=== PATIENT | female | born 1990 ===

== ENCOUNTER 2018-08-15 16:55 | Observation (INO) | payer OTHER ==
[2018-08-15 16:55] VITALS: BMI 29.2
--- NOTE | 2018-08-15 17:28 | ED PDOC ---
Syncope/Near Syncope/Dizziness Time Seen by Provider: 08/15/18 17:08 Chief Complaint (Nursing): Syncope History Per: Patient, Other Onset/Duration Of Symptoms: Hrs (1) Current Symptoms Are (Timing): Better Activity At Onset Of Symptoms: Standing Fall Associated With With Symptoms: No Severity: Moderate Additional Complaint(s): Brought by EMS after pt was noted to have syncopal episode with possible seizure activity witnessed by friend. Shaking upper exts. Entire syncopal episode lasted approx 10 min. Pt does not recollect event. No fall or injury. No biting of tongue. Past Medical History Vital Signs: Last Vital Signs Temp 98.9 F 08/15/18 16:59 Pulse 80 08/15/18 16:59 Resp 16 08/15/18 16:59 BP 148/101 H 08/15/18 16:59 Pulse Ox 99 08/15/18 16:59 - Medical History PMH: Anemia - Family History Family History: States: Unknown Family Hx - Allergies Allergies/Adverse Reactions: Allergies Allergy/AdvReac Type Severity Reaction Status Date / Time No Known Allergies Allergy Verified 02/22/13 23:53 Review of Systems ROS Statement: Except As Marked, All Systems Reviewed And Found Negative Neurological: Positive for: Headache, Other (Syncope) Physical Exam - Reviewed Nursing Documentation Reviewed: Yes Vital Signs Reviewed: Yes - Physical Exam Appears: Positive for: Non-toxic, No Acute Distress Head Exam: Positive for: ATRAUMATIC, NORMAL INSPECTION, NORMOCEPHALIC Skin: Positive for: Normal Color, Warm, DRY Eye Exam: Positive for: EOMI, Normal appearance, PERRL ENT: Positive for: Normal ENT Inspection Neck: Positive for: Normal, Painless ROM Cardiovascular/Chest: Positive for: Regular Rate, Rhythm Respiratory: Positive for: CNT, Normal Breath Sounds Gastrointestinal/Abdominal: Positive for: Normal Exam, Soft Back: Positive for: Normal Inspection Extremity: Positive for: Normal ROM Neurologic/Psych: Positive for: Alert, Oriented - ECG O2 Sat by Pulse Oximetry: 99 Disposition - Clinical Impression Clinical Impression: Syncope - Patient ED Disposition Is Patient to be Admitted: Yes - Disposition Disposition Time: 18:17 Condition: FAIR Forms: [facility] (Tristanian) - Pt Status Changed To: Hospital Disposition Of: Observation - POA Present On Arrival: None
--- NOTE | 2018-08-15 18:29 | CT ---
Date of service: 08/15/2018 PROCEDURE: CT HEAD WITHOUT CONTRAST. HISTORY: r/o bleed COMPARISON: None. TECHNIQUE: Axial computed tomography images were obtained through the head/brain without intravenous contrast. Supplemental Coronal and Sagittal projections created and reviewed. Radiation dose: Total exam DLP = 692.52 mGy-cm. This CT exam was performed using one or more of the following dose reduction techniques: Automated exposure control, adjustment of the mA and/or kV according to patient size, and/or use of iterative reconstruction technique. FINDINGS: HEMORRHAGE: No intracranial hemorrhage. BRAIN: No mass effect or edema. No atrophy or chronic microvascular ischemic changes. VENTRICLES: Unremarkable. No hydrocephalus. CALVARIUM: Unremarkable. PARANASAL SINUSES: Unremarkable as visualized. No significant inflammatory changes. MASTOID AIR CELLS: Unremarkable as visualized. No inflammatory changes. OTHER FINDINGS: None. IMPRESSION: No acute intracranial abnormalities. No significant findings to account for the clinical presentation.
--- NOTE | 2018-08-15 18:56 | CP.PCM.HP ---
<Chico Vences - Last Filed: 08/15/18 22:20> History of Present Illness - History of Present Illness History of Present Illness: Pt is a 28 y/o female with hx of Gestational HTN brought in by ambulance after seizure-like episode/syncopy. Pt states she was at work today and she started to feel cold and shaky. She called her cousin who came to her job and witnessed her lose consciousness suddenly and "started shaking all over like a seizure." Episode lasted ~10minutes during which time she was unresponsive. When she woke up, cousin states she was slightly confused, lethargic and had no recollection of preceding events. As per cousin, she denied seeing any head trauma, tongue biting, or loss of bladder control during episode. Pt denies any hx of seizures, recent illness, cp, sob, cough, fever/chills, new medications, motor/sensory deficits, blurry vision, or drug intake. Pt states she had headache a few days before which was at its usually severity. PMD: none PMHX: Gestational HTN, Tension headaches PSHx: 3 c sections Medications: None NKDA FmHx: Denies Social x3 negative, works in [employer] Present on Admission - Present on Admission Any Indicators Present on Admission: No Review of Systems - Constitutional Constitutional: absent: Chills, Fever - EENT Eyes: absent: Blurred Vision Nose/Mouth/Throat: absent: Epistaxis - Cardiovascular Cardiovascular: absent: Chest Pain - Respiratory Respiratory: absent: Cough - Gastrointestinal Gastrointestinal: absent: Abdominal Pain - Genitourinary Genitourinary: absent: Dysuria Past Patient History - Past Social History Smoking Status: Never Smoked - NEUROLOGICAL Hx Syncope: Yes - HEMATOLOGICAL/ONCOLOGICAL Hx Anemia: Yes - PSYCHIATRIC Hx Substance Use: No Meds Allergies/Adverse Reactions: Allergies Allergy/AdvReac Type Severity Reaction Status Date / Time No Known Allergies Allergy Verified 02/22/13 23:53 Physical Exam - Constitutional Appears: No Acute Distress (Comfortable appearing female lying in bed) - Head Exam Head Exam: ATRAUMATIC, NORMAL INSPECTION - Eye Exam Eye Exam: EOMI, Normal appearance, PERRL. absent: Nystagmus - ENT Exam ENT Exam: Mucous Membranes Moist - Neck Exam Neck exam: Positive for: Full Rom - Respiratory Exam Respiratory Exam: Clear to Auscultation Bilateral. absent: Rales, Wheezes - Cardiovascular Exam Cardiovascular Exam: REGULAR RHYTHM, +S1, +S2. absent: Systolic Murmur - GI/Abdominal Exam GI & Abdominal Exam: Normal Bowel Sounds, Soft. absent: Tenderness - Extremities Exam Extremities exam: Positive for: normal inspection - Neurological Exam Neurological exam: Alert, Oriented x3 Additional comments: CN 2-12 intact, no motor or sensory deficit, no facial droop or slurred speech - Psychiatric Exam Psychiatric exam: Normal Affect - Skin Skin Exam: Normal Color Results - Vital Signs Recent Vital Signs: Last Vital Signs Temp 98.9 F 08/15/18 16:59 Pulse 80 08/15/18 16:59 Resp 16 08/15/18 16:59 BP 148/101 H 08/15/18 16:59 Pulse Ox 99 08/15/18 18:18 - Labs Result Diagrams: 08/15/18 19:13 08/15/18 19:11 Assessment & Plan - Assessment and Plan (Free Text) Assessment: Pt is a 28 y/o female with hx of Gestational HTN brought in by ambulance after seizure like episode/syncopy. #Syncopy -Possibly seizure, will evaluate for other potential causes. - Hemodynamically stable, afebrile - CBC, CMP normal - Utox negative, ETOH negative - Head CT: No acute intracranial abnormalities - EKG: NSR - Cardiac Monitoring in Telemetry unit - Neurology consult, Dr. Lai - F/U Echo, Carotid Artery US BL - F/u AM Prolactin #Diet -regular #DVT -Low risk - SCD's for now -Ambulation encouraged Discussed case with Dr. Jose Vences PGY2 <Darcie Garcia - Last Filed: 08/16/18 19:00> Results - Vital Signs Recent Vital Signs: Last Vital Signs Temp 98.8 F 08/16/18 17:06 Pulse 72 08/16/18 17:06 Resp 16 08/16/18 17:06 BP 126/86 08/16/18 17:06 Pulse Ox 97 08/16/18 17:06 - Labs Result Diagrams: 08/15/18 19:13 08/15/18 19:11 Labs: Laboratory Results - last 24 hr 08/15/18 08/15/18 08/15/18 19:11 19:11 19:13 WBC 8.3 RBC 4.92 Hgb 14.1 Hct 42.5 MCV 86.5 MCH 28.6 MCHC 33.1 RDW 14.3 Plt Count 246 MPV 9.2 Neut % (Auto) 65.4 Lymph % (Auto) 27.5 [place] % (Auto) 5.3 Eos % (Auto) 1.1 Baso % (Auto) 0.7 Neut # (Auto) 5.4 Lymph # (Auto) 2.3 [place] # (Auto) 0.4 Eos # (Auto) 0.1 Baso # (Auto) 0.1 Sodium 140 Potassium 4.1 Chloride 105 Carbon Dioxide 24 Anion Gap 15 BUN 11 Creatinine 0.5 L Est GFR ( Amer) > 60 Est GFR (Non-Af Amer) > 60 Random Glucose 86 Calcium 9.6 Magnesium Total Bilirubin 0.5 AST 30 ALT 30 Alkaline Phosphatase 85 Total Creatine Kinase 121 Total Protein 8.6 H Albumin 4.7 Globulin 3.9 Albumin/Globulin Ratio 1.2 Triglycerides Cholesterol LDL Cholesterol Direct HDL Cholesterol Prolactin Urine Opiates Screen Negative Urine Methadone Screen Negative Ur Barbiturates Screen Negative Ur Phencyclidine Scrn Negative Ur Amphetamines Screen Negative U Benzodiazepines Scrn Negative U Oth Cocaine Metabols Negative U Cannabinoids Screen Negative Alcohol, Quantitative < 10 08/15/18 08/16/18 20:25 04:25 WBC RBC Hgb Hct MCV MCH MCHC RDW Plt Count MPV Neut % (Auto) Lymph % (Auto) [place] % (Auto) Eos % (Auto) Baso % (Auto) Neut # (Auto) Lymph # (Auto) [place] # (Auto) Eos # (Auto) Baso # (Auto) Sodium Potassium Chloride Carbon Dioxide Anion Gap BUN Creatinine Est GFR ( Amer) Est GFR (Non-Af Amer) Random Glucose Calcium 9.7 Magnesium 2.1 Total Bilirubin AST ALT Alkaline Phosphatase Total Creatine Kinase Total Protein Albumin Globulin Albumin/Globulin Ratio Triglycerides 80 Cholesterol 201 H LDL Cholesterol Direct 135 H HDL Cholesterol 43 Prolactin 46.1 H Urine Opiates Screen Urine Methadone Screen Ur Barbiturates Screen Ur Phencyclidine Scrn Ur Amphetamines Screen U Benzodiazepines Scrn U Oth Cocaine Metabols U Cannabinoids Screen Alcohol, Quantitative Attending/Attestation - Attestation I have personally seen and examined this patient.: Yes I have fully participated in the care of the patient.: Yes I have reviewed all pertinent clinical information: Yes Notes (Text): 08/16/18 19:00 agree with findings and plan as above
[2018-08-15 19:19] LABS: BASO # 0.1 K/uL (0.0-0.2); BASO % 0.7 % (0.0-2.0); EOS # 0.1 K/uL (0.0-0.7); EOS % 1.1 % (0.0-4.0); HEMOGLOBIN 14.1 g/dL (12.0-16.0); LYMPH # 2.3 K/uL (1.0-4.3); LYMPH % 27.5 % (20.0-40.0); MEAN CELL VOLUME 86.5 fl (81.0-99.0); MEAN CORPUSCULAR HEMOGLOBIN 28.6 pg (27.0-31.0); MEAN CORPUSCULAR HGB CONC 33.1 g/dL (33.0-37.0); MEAN PLATELET VOLUME 9.2 fl (7.2-11.7); MONO # 0.4 K/uL (0.0-0.8); MONO % 5.3 % (0.0-10.0); NEUT # 5.4 K/uL (1.8-7.0); NEUT % 65.4 % (50.0-75.0); NRBC % 0.1 % (0.0-0.0); RBC 4.92 Mil/uL (3.80-5.20); RED CELL DISTRIBUTION WIDTH 14.3 % (11.5-14.5); WHITE BLOOD COUNT 8.3 K/uL (4.8-10.8)
[2018-08-15 19:32] LABS: ALB/GLOB RATIO 1.2 (1.0-2.1); ALBUMIN 4.7 g/dL (3.5-5.0); ALT/SGPT 30 U/L (9-52); AST/SGOT 30 U/L (14-36); BLOOD UREA NITROGEN 11 mg/dl (7-17); CALCIUM 9.6 mg/dL (8.4-10.2); GFR NON-AFRICAN AMERICAN > 60
[2018-08-15 19:41] LABS: BARBITURATES, UR NEGATIVE (NEGATIVE); BENZODIAZEPINES, UR NEGATIVE (NEGATIVE); OPIATES, UR NEGATIVE (NEGATIVE); PHENCYCLIDINE, UR NEGATIVE (NEGATIVE)
[2018-08-16 04:56] VITALS: O2SAT 97
[2018-08-16] MEDS ORDERED: Influenza Vaccine (5 YR UP)/PF 60 MCG/0.5 ML SYR IM ONE (06:00)
[2018-08-16] MEDS ORDERED: Influenza Vaccine 60 mcg/0.5 mL SYR (4YR UP) IM ONE (06:00)
[2018-08-16 06:08] LABS: CALCIUM 9.7 mg/dL (8.4-10.2)
--- NOTE | 2018-08-16 09:40 | CP.PCM.PN ---
Subjective - Date & Time of Evaluation Date of Evaluation: 08/16/18 Time of Evaluation: 07:45 - Subjective Subjective: Pt seen and examined at bedside this am. Denies acute overnight events. Denies history of cardiac or neuro pathology. Denies focal neurological deficit. Tolerating PO diet and experiencing normal bowel movement. Objective - Vital Signs/Intake and Output Vital Signs (last 24 hours): Temp Pulse Resp BP Pulse Ox 98.6 F 84 18 118/77 97 08/16/18 08:07 08/16/18 08:07 08/16/18 08:07 08/16/18 08:07 08/16/18 08:07 - Medications Medications: Current Medications Acetaminophen (Tylenol 325mg Tab) 650 mg PO Q6 PRN PRN Reason: Pain, Mild (1-3) - Labs Labs: 08/15/18 19:13 08/15/18 19:11 - Constitutional Appears: Well, No Acute Distress - Eye Exam Eye Exam: EOMI - ENT Exam ENT Exam: Mucous Membranes Moist - Neck Exam Neck Exam: Full ROM - Respiratory Exam Respiratory Exam: Clear to Ausculation Bilateral, NORMAL BREATHING PATTERN. absent: Wheezes - Cardiovascular Exam Cardiovascular Exam: REGULAR RHYTHM, +S1, +S2 - GI/Abdominal Exam GI & Abdominal Exam: Soft, Normal Bowel Sounds. absent: Tenderness - Extremities Exam Extremities Exam: Full ROM - Back Exam Back Exam: absent: CVA tenderness (L), CVA tenderness (R) - Neurological Exam Neurological Exam: Alert, Awake, CN II-XII Intact, Oriented x3 - Psychiatric Exam Psychiatric exam: Normal Affect, Normal Mood Assessment and Plan - Assessment and Plan (Free Text) Assessment: Pt is a 28 y/o female with hx of Gestational HTN presents for possible seizure like episode/syncope. Plan: Head CT: No acute intracranial abnormalities EKG: NSR Carotid Artery US: No evidence of hemodynamically significant stenosis in the extracranial internal carotic arteries by peak systolic velocity criteria. Patent bilateral vertebral arteries with antegrade flow ECHO: EF 60-65%; borderline concentric LVH; mild TR EEG: done Syncopy - Possibly seizure - Utox negative, ETOH negative - Cardiac Monitoring in Telemetry unit - Neurology Dr. Lai: Further recs appreciated. - Lipid: T; Cholesterol: 201; LDL: 135; HDL: 43 - Prolactin: 46.[address] Jose Nolan MD PGY2
--- NOTE | 2018-08-16 10:54 | CARD ---
APPROVED REPORT Date of service: 08/15/2018 EKG Measurement Heart [id number] <Conclusion> Normal sinus rhythm Normal Electrocardiogram
--- NOTE | 2018-08-16 11:01 | CARD ---
APPROVED REPORT Date of service: 08/16/2018 EXAM: Two-dimensional and M-mode echocardiogram with Doppler and color Doppler. Other Information Quality : GoodRhythm : NSR INDICATION Syncope 2D DIMENSIONS IVSd1.24 (0.7-1.1cm)LVDd3.91 (3.9-5.9cm) LVOT Diameter1.86 (1.8-2.4cm)PWd1.15 (0.7-1.1cm) IVSs1.35 (0.8-1.2cm)LVDs2.61 (2.5-4.0cm) FS (%) 33.2 %PWs1.61 (0.8-1.2cm) M-Mode DIMENSIONS Left Atrium (MM)3.08 (2.5-4.0cm)IVSd1.19 (0.7-1.1cm) Aortic Root2.60 (2.2-3.7cm)LVDd3.35 (4.0-5.6cm) Aortic Cusp Exc.1.67 (1.5-2.0cm)PWd1.43 (0.7-1.1cm) IVSs1.46 cmFS (%) 43 % LVDs1.91 (2.0-3.8cm)PWs1.77 cm Aortic Valve AoV Peak Nopzpcmr369.4cm/sAoV VTI23.1cmAO Peak GR.6mmHg LVOT Peak Wivnakte827.1cm/sLVOT VTI19.48cmAO Mean GR.3mmHg CHRISTAL (VMAX)1.97rf3VMN (VTI)1.40cm2 Mitral Valve MV E Pgctdxfu66.6cm/sMV DECEL [id number] A Nqophcen92.5cm/s MV FQY81sfV/A ratio1.6MVA (PHT)3.49cm2 TDI Lateral E' Peak V9.94cm/sMedial E' Peak V7.90cm/sE/Lateral E'7.5 E/Medial E'9.4 Tricuspid Valve TR Peak Zefrpozr382cy/sRAP [id number] Peak Gr.26mmHg [id number] LEFT VENTRICLE The left ventricle is normal size. There is borderline concentric left ventricular hypertrophy. The left ventricular systolic function is normal. The estimated ejection fraction is 60-65% No regional wall motion abnormalities noted.. The left ventricular diastolic function is normal. No left ventricle thrombus noted on this study. There is no ventricular septal defect visualized. There is no left ventricular aneurysm. There is no mass noted in the left ventricle. RIGHT VENTRICLE The right ventricle is normal size. There is normal right ventricular wall thickness. The right ventricular systolic function is normal. ATRIA The left atrium size is normal. The right atrium size is normal. The interatrial septum is intact with no evidence for an atrial septal defect. AORTIC VALVE The aortic valve is normal in structure. No aortic regurgitation is present. There is no aortic valvular stenosis. There is no aortic valvular vegetation. MITRAL VALVE The mitral valve is normal in structure. There is no evidence of mitral valve prolapse. There is no mitral valve stenosis. There is no mitral valve regurgitation noted. TRICUSPID VALVE The tricuspid valve is normal in structure. There is mild tricuspid valve regurgitation noted. RVSP is calculated at 33 mm Hg. There is no tricuspid valve prolapse or vegetation. There is no tricuspid valve stenosis. PULMONIC VALVE The pulmonary valve is normal in structure. There is no pulmonic valvular regurgitation. There is no pulmonic valvular stenosis. GREAT VESSELS The aortic root is normal in size. The ascending aorta is normal in size. The pulmonary artery is normal. The IVC is normal in size and collapses >50% with inspiration. PERICARDIAL EFFUSION There is no pericardial effusion. There is no pleural effusion. <Conclusion> There is borderline concentric left ventricular hypertrophy. The estimated ejection fraction is 60-65% The left ventricular diastolic function is normal. The right ventricular systolic function is normal. The left atrium size is normal. There is mild tricuspid valve regurgitation noted. RVSP is calculated at 33 mm Hg. The IVC is normal in size and collapses >50% with inspiration.
--- NOTE | 2018-08-16 11:29 | US ---
Date of service: 08/15/2018 PROCEDURE: Duplex ultrasound of the carotid and vertebral arteries. HISTORY: Syncope COMPARISON: None available. TECHNIQUE: Grayscale and duplex Doppler evaluation of the cervical carotid and vertebral arteries were performed. The common carotid, carotid bifurcations and cervical ICA and proximal ECA were evaluated. The vertebral arteries were evaluated for gross patency and direction. FINDINGS: RIGHT CAROTID ARTERIES: Common Carotid Artery: Normal. Maximal flow velocity of 108.1 cm/s. Carotid Bifurcation: Normal. Internal Carotid Artery:Normal. Maximal flow velocity of 76.3 cm/s. External Carotid Artery (proximal branches): Normal. Maximal flow velocity of 85.1 cm/s. ICA/CCA Ratio: 1.1 LEFT CAROTID ARTERIES: Common Carotid Artery: Normal. Maximal flow velocity of 99.9 cm/s. Carotid Bifurcation: Normal. Internal Carotid Artery:Normal. Maximal flow velocity of 69.8 cm/s. External Carotid Artery (proximal branches): Normal. Maximal flow velocity of 57.6 cm/s. ICA/CCA Ratio: 0.9 VERTEBRAL ARTERIES: Right Vertebral Artery: Patent. Antegrade flow. Left Vertebral Artery: Patent. Antegrade flow. OTHER FINDINGS: No atherosclerotic calcification present IMPRESSION: No evidence of hemodynamically significant stenosis in the extracranial internal carotid arteries by peak systolic velocity criteria. Patent bilateral vertebral arteries with antegrade flow.
--- NOTE | 2018-08-16 12:54 | PCM.EEG ---
Electroencephalogram Report - Electroencephalogram Report Procedure Date: 08/16/18 Medication: Tylenol Interpretation: Technical Information: This was a 16 -channel EEG, 1-channel EKG routine EEG performed using an [employer] machine. Electrodes were applied using the 10/20 international placement system. Start; 10;10 End; 11;01 Clinical Information: syncope During resting wakefulness there was a symmetric posterior dominant rhythm at 8.5-9.5 Hz, 30-50 uV, which was reactive to eye opening and closing. Drowsiness (10;28) was associated with fragmentation of the posterior dominant rhythm and with slow roving eye movements. Light sleep (10;48) was recorded and was characterized by central vertex waves, sleep spindles, and bilateral theta slowing. Hyperventilation was performed and there were no changes on the record. . Photic stimulation was performed and there were no changes on the record. Focal abnormality; none ECG was associated with a normal sinus rhythm. Impression: This is a normal awake drowsy and sleep electroencephalogram.
--- NOTE | 2018-08-16 14:46 | CP.PCM.DIS ---
<Thomas Nolan - Last Filed: 08/16/18 14:44> Provider - Provider Date of Admission: 08/15/18 18:16 Attending physician: Darcie Garcia DO Consults: 08/15/18 18:56 Neurology Consult Routine Comment: Consulting Provider: Abdifatah Lai Consulting Physician: Abdifatah Lia Reason for Consult: rule out seizure Time Spent in preparation of Discharge (in minutes): 30 Hospital Course - Lab Results Lab Results: Most Recent Lab Values WBC 8.3 K/uL (4.8-10.8) 08/15/18 19:13 RBC 4.92 Mil/uL (3.80-5.20) 08/15/18 19:13 Hgb 14.1 g/dL (12.0-16.0) 08/15/18 19:13 Hct 42.5 % (34.0-47.0) 08/15/18 19:13 MCV 86.5 fl (81.0-99.0) 08/15/18 19:13 MCH 28.6 pg (27.0-31.0) 08/15/18 19:13 MCHC 33.1 g/dL (33.0-37.0) 08/15/18 19:13 RDW 14.3 % (11.5-14.5) 08/15/18 19:13 Plt Count 246 K/uL (130-400) 08/15/18 19:13 MPV 9.2 fl (7.2-11.7) 08/15/18 19:13 Neut % (Auto) 65.4 % (50.0-75.0) 08/15/18 19:13 Lymph % (Auto) 27.5 % (20.0-40.0) 08/15/18 19:13 [place] % (Auto) 5.3 % (0.0-10.0) 08/15/18 19:13 Eos % (Auto) 1.1 % (0.0-4.0) 08/15/18 19:13 Baso % (Auto) 0.7 % (0.0-2.0) 08/15/18 19:13 Neut # (Auto) 5.4 K/uL (1.8-7.0) 08/15/18 19:13 Lymph # (Auto) 2.3 K/uL (1.0-4.3) 08/15/18 19:13 [place] # (Auto) 0.4 K/uL (0.0-0.8) 08/15/18 19:13 Eos # (Auto) 0.1 K/uL (0.0-0.7) 08/15/18 19:13 Baso # (Auto) 0.1 K/uL (0.0-0.2) 08/15/18 19:13 Sodium 140 mmol/l (132-148) 08/15/18 19:11 Potassium 4.1 MMOL/L (3.6-5.0) 08/15/18 19:11 Chloride 105 mmol/L (98-107) 08/15/18 19:11 Carbon Dioxide 24 mmol/L (22-30) 08/15/18 19:11 Anion Gap 15 (10-20) 08/15/18 19:11 BUN 11 mg/dl (7-17) 08/15/18 19:11 Creatinine 0.5 mg/dl (0.7-1.2) L 08/15/18 19:11 Est GFR ( Amer) > 60 08/15/18 19:11 Est GFR (Non-Af Amer) > 60 08/15/18 19:11 Random Glucose 86 mg/dL (65-105) 08/15/18 19:11 Calcium 9.7 mg/dL (8.4-10.2) 08/16/18 04:25 Magnesium 2.1 MG/DL (1.6-2.3) 08/16/18 04:25 Total Bilirubin 0.5 mg/dl (0.2-1.3) 08/15/18 19:11 AST 30 U/L (14-36) 08/15/18 19:11 ALT 30 U/L (9-52) 08/15/18 19:11 Alkaline Phosphatase 85 U/L (38-126) 08/15/18 19:11 Total Creatine Kinase 121 U/L (30-135) 08/15/18 19:11 Total Protein 8.6 G/DL (6.3-8.2) H 08/15/18 19:11 Albumin 4.7 g/dL (3.5-5.0) 08/15/18 19:11 Globulin 3.9 gm/dL (2.2-3.9) 08/15/18 19:11 Albumin/Globulin Ratio 1.2 (1.0-2.1) 08/15/18 19:11 Triglycerides 80 mg/DL (0-149) 08/16/18 04:25 Cholesterol 201 mg/dL (0-199) H 08/16/18 04:25 LDL Cholesterol Direct 135 mg/dL (0-129) H 08/16/18 04:25 HDL Cholesterol 43 MG/DL (30-70) 08/16/18 04:25 Prolactin 46.1 ng/mL (3.0-18.9) H 08/15/18 20:25 Urine Opiates Screen Negative (NEGATIVE) 08/15/18 19:11 Urine Methadone Screen Negative (NEGATIVE) 08/15/18 19:11 Ur Barbiturates Screen Negative (NEGATIVE) 08/15/18 19:11 Ur Phencyclidine Scrn Negative (NEGATIVE) 08/15/18 19:11 Ur Amphetamines Screen Negative (NEGATIVE) 08/15/18 19:11 U Benzodiazepines Scrn Negative (NEGATIVE) 08/15/18 19:11 U Oth Cocaine Metabols Negative (NEGATIVE) 08/15/18 19:11 U Cannabinoids Screen Negative (NEGATIVE) 08/15/18 19:11 Alcohol, Quantitative < 10 mg/dl (0-10) 08/15/18 19:11 - Hospital Course Hospital Course: 28 y/o female with hx of Gestational HTN presents for possible seizure like episode/syncope. Head CT: No acute intracranial abnormalities EKG: NSR Carotid Artery US: No evidence of hemodynamically significant stenosis in the extracranial internal carotid arteries by peak systolic velocity criteria. Patent bilateral vertebral arteries with antegrade flow ECHO: EF 60-65%; borderline concentric LVH; mild TR EEG: Normal awake drowsy and sleep electroencephalogram. Syncopy - Possibly seizure - Utox negative, ETOH negative - Cardiac Monitoring in Telemetry unit - Neurology Dr. Park - Lipid: T; Cholesterol: 201; LDL: 135; HDL: 43 - Prolactin: 46.1. Pt discharge come to f/u with pmd in 3-5 days. ER precautions reviewed with patient. Discussed case with Dr. Jose Nolan MD PGY2 Discharge Exam - Head Exam Head Exam: ATRAUMATIC, NORMAL INSPECTION - Eye Exam Eye Exam: EOMI - ENT Exam ENT Exam: Mucous Membranes Dry - Respiratory Exam Respiratory Exam: Clear to PA & Lateral, NORMAL BREATHING PATTERN. absent: Wheezes - Cardiovascular Exam Cardiovascular Exam: REGULAR RHYTHM, +S1, +S2 - GI/Abdominal Exam GI & Abdominal Exam: Normal Bowel Sounds, Soft. absent: Tenderness - Back Exam Back exam: absent: CVA tenderness (L), CVA tenderness (R) - Neurological Exam Neurological exam: Alert, CN II-XII Intact, Oriented x3 - Psychiatric Exam Psychiatric exam: Normal Affect, Normal Mood Discharge Plan - Follow Up Plan Condition: FAIR Disposition: HOME/ ROUTINE Instructions: Syncope (DC) Additional Instructions: Pt to f/u with PMD in 3-5 days ER precautions reviewed with patient Neurology: Dr. Park. Referrals: [facility] [Outside] Esvin Park MD [Medical Doctor] - <Darcie Garcia - Last Filed: 08/16/18 18:57> Provider - Provider Date of Admission: 08/15/18 18:16 Attending physician: Darcie Garcia DO Consults: 08/15/18 18:56 Neurology Consult Routine Comment: Consulting Provider: Abdifatah Lai Consulting Physician: Abdifatah Lai Reason for Consult: rule out seizure Hospital Course - Lab Results Lab Results: Most Recent Lab Values WBC 8.3 K/uL (4.8-10.8) 08/15/18 19:13 RBC 4.92 Mil/uL (3.80-5.20) 08/15/18 19:13 Hgb 14.1 g/dL (12.0-16.0) 08/15/18 19:13 Hct 42.5 % (34.0-47.0) 08/15/18 19:13 MCV 86.5 fl (81.0-99.0) 08/15/18 19:13 MCH 28.6 pg (27.0-31.0) 08/15/18 19:13 MCHC 33.1 g/dL (33.0-37.0) 08/15/18 19:13 RDW 14.3 % (11.5-14.5) 08/15/18 19:13 Plt Count 246 K/uL (130-400) 08/15/18 19:13 MPV 9.2 fl (7.2-11.7) 08/15/18 19:13 Neut % (Auto) 65.4 % (50.0-75.0) 08/15/18 19:13 Lymph % (Auto) 27.5 % (20.0-40.0) 08/15/18 19:13 [place] % (Auto) 5.3 % (0.0-10.0) 08/15/18 19:13 Eos % (Auto) 1.1 % (0.0-4.0) 08/15/18 19:13 Baso % (Auto) 0.7 % (0.0-2.0) 08/15/18 19:13 Neut # (Auto) 5.4 K/uL (1.8-7.0) 08/15/18 19:13 Lymph # (Auto) 2.3 K/uL (1.0-4.3) 08/15/18 19:13 [place] # (Auto) 0.4 K/uL (0.0-0.8) 08/15/18 19:13 Eos # (Auto) 0.1 K/uL (0.0-0.7) 08/15/18 19:13 Baso # (Auto) 0.1 K/uL (0.0-0.2) 08/15/18 19:13 Sodium 140 mmol/l (132-148) 08/15/18 19:11 Potassium 4.1 MMOL/L (3.6-5.0) 08/15/18 19:11 Chloride 105 mmol/L (98-107) 08/15/18 19:11 Carbon Dioxide 24 mmol/L (22-30) 08/15/18 19:11 Anion Gap 15 (10-20) 08/15/18 19:11 BUN 11 mg/dl (7-17) 08/15/18 19:11 Creatinine 0.5 mg/dl (0.7-1.2) L 08/15/18 19:11 Est GFR ( Amer) > 60 08/15/18 19:11 Est GFR (Non-Af Amer) > 60 08/15/18 19:11 Random Glucose 86 mg/dL (65-105) 08/15/18 19:11 Calcium 9.7 mg/dL (8.4-10.2) 08/16/18 04:25 Magnesium 2.1 MG/DL (1.6-2.3) 08/16/18 04:25 Total Bilirubin 0.5 mg/dl (0.2-1.3) 08/15/18 19:11 AST 30 U/L (14-36) 08/15/18 19:11 ALT 30 U/L (9-52) 08/15/18 19:11 Alkaline Phosphatase 85 U/L (38-126) 08/15/18 19:11 Total Creatine Kinase 121 U/L (30-135) 08/15/18 19:11 Total Protein 8.6 G/DL (6.3-8.2) H 08/15/18 19:11 Albumin 4.7 g/dL (3.5-5.0) 08/15/18 19:11 Globulin 3.9 gm/dL (2.2-3.9) 08/15/18 19:11 Albumin/Globulin Ratio 1.2 (1.0-2.1) 08/15/18 19:11 Triglycerides 80 mg/DL (0-149) 08/16/18 04:25 Cholesterol 201 mg/dL (0-199) H 08/16/18 04:25 LDL Cholesterol Direct 135 mg/dL (0-129) H 08/16/18 04:25 HDL Cholesterol 43 MG/DL (30-70) 08/16/18 04:25 Prolactin 46.1 ng/mL (3.0-18.9) H 08/15/18 20:25 Urine Opiates Screen Negative (NEGATIVE) 08/15/18 19:11 Urine Methadone Screen Negative (NEGATIVE) 08/15/18 19:11 Ur Barbiturates Screen Negative (NEGATIVE) 08/15/18 19:11 Ur Phencyclidine Scrn Negative (NEGATIVE) 08/15/18 19:11 Ur Amphetamines Screen Negative (NEGATIVE) 08/15/18 19:11 U Benzodiazepines Scrn Negative (NEGATIVE) 08/15/18 19:11 U Oth Cocaine Metabols Negative (NEGATIVE) 08/15/18 19:11 U Cannabinoids Screen Negative (NEGATIVE) 08/15/18 19:11 Alcohol, Quantitative < 10 mg/dl (0-10) 08/15/18 19:11 Attending/Attestation - Attestation I have personally seen and examined this patient.: Yes I have fully participated in the care of the patient.: Yes I have reviewed all pertinent clinical information, including history, physical exam and plan: Yes Notes (Text): 08/16/18 18:57 agree with findings and plan as above
[2018-08-16 17:07] VITALS: BP 126/86; PULSE 72; RESP 16; TEMP 98.8
--- NOTE | 2018-08-16 21:07 | CP.PCM.CON ---
History of Present Illness - History of Present Illness History of Present Illness: neurology consult dictated. Please see note for further details. Patient most likely had a syncopal spell. Not likely to be a seizure. Dr. Xavier Araujo Neurology Past Patient History - Past Medical History & Family History Past Medical History?: Yes - Past Social History Smoking Status: Never Smoked - CARDIAC Hx Cardiac Disorders: No - PULMONARY Hx Respiratory Disorders: No - NEUROLOGICAL Hx Neurological Disorder: Yes Hx Syncope: Yes - HEENT Hx HEENT Problems: No - RENAL Hx Chronic Kidney Disease: No - ENDOCRINE/METABOLIC Hx Endocrine Disorders: No - HEMATOLOGICAL/ONCOLOGICAL Hx Blood Disorders: Yes Hx Anemia: Yes - INTEGUMENTARY Hx Dermatological Problems: No - MUSCULOSKELETAL/RHEUMATOLOGICAL Hx Musculoskeletal Disorders: No Hx Falls: No - GASTROINTESTINAL Hx Gastrointestinal Disorders: No - GENITOURINARY/GYNECOLOGICAL Hx Genitourinary Disorders: No - PSYCHIATRIC Hx Psychophysiologic Disorder: No Hx Substance Use: No - SURGICAL HISTORY Hx Surgeries: Yes Other/Comment: - ANESTHESIA Hx Anesthesia: Yes Hx Anesthesia Reactions: No Hx Malignant Hyperthermia: No Has any member of the family had a problem w/ anesthesia?: No Meds Allergies/Adverse Reactions: Allergies Allergy/AdvReac Type Severity Reaction Status Date / Time No Known Allergies Allergy Verified 02/22/13 23:53 Results - Vital Signs Recent Vital Signs: Last Vital Signs Temp 98.8 F 08/16/18 17:06 Pulse 72 08/16/18 17:06 Resp 16 08/16/18 17:06 BP 126/86 08/16/18 17:06 Pulse Ox 97 08/16/18 17:06 - Labs Result Diagrams: 08/15/18 19:13 08/15/18 19:11 Labs: Laboratory Results - last 24 hr 08/15/18 08/16/18 20:25 04:25 Calcium 9.7 Magnesium 2.1 Triglycerides 80 Cholesterol 201 H LDL Cholesterol Direct 135 H HDL Cholesterol 43 Prolactin 46.1 H
--- NOTE | 2018-08-17 03:22 | CON ---
DATE: 08/16/2018 NEUROLOGY CONSULTATION Neurology consult called by Dr. Darcie Garcia. HISTORY OF PRESENT ILLNESS: Ms. Dulce Hutton is a 28-year-old woman with a past medical history of high blood pressure who was at work when she suddenly felt diaphoretic and hot, and she called her , came to her job. Suddenly, the patient fell down and felt shaking and trembling. There was no urinary incontinence. Her eyes were closed. The episode lasted about 10 to 15 minutes, after which she was unresponsive for one or two minutes. The patient was slightly confused and lethargic after this event and was amnestic of the event. This has happened several times before in her lifetime. She had a cardiac workup done in the past which is normal. She is originally from [facility]. REVIEW OF SYSTEMS: There is no nausea. There is no vomiting. There is no numbness. There is no tingling. There is no weakness. There is no aphasia or dysarthria. PAST MEDICAL HISTORY: The patient had hypertension, tension headache. PAST SURGICAL HISTORY: . SOCIAL AND FAMILY HISTORY: The patient works in a store. She has two children. She is from [facility]. There is no tobacco or alcohol. ALLERGIES: NO KNOWN DRUG ALLERGIES. PHYSICAL EXAMINATION: GENERAL: Alert and oriented x3. NEUROLOGIC: Cranial nerves II through XII are normal. Pupils are equal, round, reactive to light. Motor strength is 5/5 upper and lower limbs bilaterally. Sensory is intact to fine touch, pin, position, sense. Cerebellar; [id number] shows no dysmetria. Gait is normal. There is no ataxia. LABORATORY DATA: CAT scan was done and it was within normal limits. EEG was done and it was within normal limits. Labs were all within normal limits. IMPRESSION: This is a 28-year-old woman with a syncopal spell. There is no epilepsy or a seizure. At least, she should get a Holter monitor and cardiac workup on an outpatient basis. At this time, we have no more recommendations. Thank you for this interesting consult. Esvin Park MD
== END 2018-08-16 17:00 | disposition home or self-care (01) ==
LOC: H.ER 16:55 → H.ERHOLD 18:16 → H.TEL 22:06
PROVIDERS: ADMIT Student in an Organized Health Care Education/Training Program; ATTEND Student in an Organized Health Care Education/Training Program
DX: R55 Syncope and collapse (principal); G44.209 Tension-type headache, unspecified, not intractable; D64.9 Anemia, unspecified; Z23 Encounter for immunization
CPT/HCPCS: 36415; 70450; 80053; 80061; 80320; 80324; 80345; 80346; 80349; 80353; 80358; 80361; 81025; 82310; 82550; 83735; 83992; 84146; 85025; 90471; 90674; 93005; 93306; 93880; 99285; G0378